=== PATIENT | female | born 2000 | race Asian ===

== ENCOUNTER 2020-12-04 20:44 | Emergency (ER) | payer OTHER ==
[~2020-12-04] VITALS: Ht 162.6 cm; Wt 49.9 kg
--- NOTE | 2020-12-04 21:07 | NUR ---
PT W/C ASSISTED TO BED #8
[2020-12-04 21:18] VITALS: BP 64/46
[2020-12-04] MEDS ORDERED: FAMOTIDINE 20 MG/2 ML VIAL IVP ONE (21:20)
[2020-12-04] MEDS ORDERED: DEXAMETHASONE 10 MG/ML VIAL IVP ONE (21:20)
[2020-12-04] MEDS ORDERED: NACL 0.9% 1,000 ML IV ONE (21:20)
[2020-12-04 21:30] VITALS: BP 64/46
--- NOTE | 2020-12-04 21:30 | NUR ---
TO BED 8 WITH C/O ALLERGIC RXN AFTER EATING ACAI BOWL, POSSIBLE CROSS CONTAMINATION. PT STATES ALLERGY TO PEANUTS AND CASHEWS. RED RAISED RASH NOTED BLE WITH URTICARIA. 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
--- NOTE | 2020-12-04 21:30 | NUR ---
PT WITH VERY POOR VENOUS ACCESS. UNABLE TO ESTABLISH ACCESS AT THIS TIME.
--- NOTE | 2020-12-04 22:30 | NUR ---
LETY established per Dr. Nugent
[2020-12-04] MEDS ORDERED: DEXAMETHASONE 10 MG/ML VIAL ONE (22:39)
[2020-12-04] MEDS ORDERED: FAMOTIDINE 20 MG/2 ML VIAL ONE (22:40)
[2020-12-04] MEDS ORDERED: ONDANSETRON 4 MG/2 ML VIAL IVP ONE (22:45)
[2020-12-04] MEDS ORDERED: EPIN1KIT32 IM (23:30)
--- NOTE | 2020-12-05 00:18 | NUR ---
Patient discharged with v/s stable. Red rash no longer present. Itching subsided and no pain per pt. Written and verbal after care instructions given and explained. Patient alert, oriented and verbalized understanding of instructions. Ambulatory with steady gait. All questions addressed prior to discharge. ID band removed. Patient advised to follow up with PMD. Rx of epipen given. Patient educated on indication of medication including possible reaction and side effects. Opportunity to ask questions provided and answered.
[2020-12-05 00:23] VITALS: BP 106/65
== END 2020-12-05 00:23 | disposition home or self-care (01) ==
LOC: MED 20:44
DX: T78.1XXA Other adverse food reactions, not elsewhere classified, initial encounter (principal); R11.11 Vomiting without nausea; X58.XXXA Exposure to other specified factors, initial encounter
CPT/HCPCS: 96361; 96374; 96375; 99284; J1100; J3490; J7030